=== PATIENT | female | born 1965 | race Two or more races ===

== ENCOUNTER → 2017-09-01 | Outpatient (CLI) | payer MEDICAID, BC ==
[2017-09-01 11:09] LABS: Basophils % (A) 0 %; Eosinophils # (A) 0.1 k/uL (0-0.7); Eosinophils % (A) 2 %; HCT 44.9 % (34.0-46.0); HGB 14.8 gm/dL (11.4-16.0); Lymphocytes # (A) 1.4 k/uL (1.0-4.8); Lymphocytes % (A) 34 %; MCH 31.3 pg (25.0-35.0); MCV 94.8 fL (80.0-100.0); Mean Platelet Volume 6.4; Monocytes # (A) 0.4 k/uL (0-1.0); Monocytes % (A) 8 %; Neutrophils # (A) 2.2 k/uL (1.3-7.7); Neutrophils % (A) 53 %; Platelet Count 264 k/uL (150-450); RBC 4.74 m/uL (3.80-5.40); WBC 4.2 k/uL (3.8-10.6)
[2017-09-01 11:22] LABS: ALT 33 U/L (9-52); AST 25 U/L (14-36); Albumin 4.6 g/dL (3.5-5.0); Alkaline Phosphatase 42 U/L (38-126); Anion Gap 9 mmol/L; Blood Urea Nitrogen 17 mg/dL (7-17); Calcium 9.9 mg/dL (8.4-10.2); Carbon Dioxide 29 mmol/L (22-30); Chloride 104 mmol/L (98-107); Cholesterol 238 mg/dL (<200); Glucose 86 mg/dL (74-99); Potassium 4.4 mmol/L (3.5-5.1); Sodium 142 mmol/L (137-145); Total Bilirubin 0.8 mg/dL (0.2-1.3); Total Protein 7.2 g/dL (6.3-8.2); Triglycerides 63 mg/dL (<150)
[2017-09-01 11:29] LABS: LDL Cholesterol,Calculated 104 mg/dL (0-99)
[2017-09-01 11:55] LABS: HDL Cholesterol 121 mg/dL (40-60)
== END | disposition home or self-care (01) ==
LOC: LABWHC1 10:18
PROVIDERS: ATTEND Internal Medicine
DX: Z00.00 Encounter for general adult medical examination without abnormal findings (principal)
CPT/HCPCS: 36415; 80053; 80061; 84443; 85025

== ENCOUNTER → 2017-09-17 | Outpatient (CLI) | payer MEDICAID, BC ==
--- NOTE | 2017-09-17 13:32 | MM ---
Reason for exam: screening (asymptomatic). History: Patient is postmenopausal. Retro-pectoral silicone gel implants in both breasts, 1999. Physical Findings: A clinical breast exam by your physician is recommended on an annual basis and results should be correlated with mammographic findings. MG 3D Screen Mammo Imp/Cad Bilateral CC, MLO, and ID view(s) were taken. The breast tissue is heterogeneously dense. This may lower the sensitivity of mammography. No significant changes when compared with prior studies. ASSESSMENT: Benign, BI-RAD 2 RECOMMENDATION: Routine screening mammogram of both breasts in 1 year.
== END | disposition home or self-care (01) ==
LOC: RADMAMWWP 07:02
PROVIDERS: ATTEND Internal Medicine
DX: Z12.31 Encounter for screening mammogram for malignant neoplasm of breast (principal)
CPT/HCPCS: 77063; 77067

== ENCOUNTER → 2018-01-11 | Outpatient (CLI) | payer MEDICAID, BC ==
--- NOTE | 2018-01-11 19:32 | US ---
EXAMINATION TYPE: US thyroid st tissue head/neck DATE OF EXAM: 01/11/2018 COMPARISON: NONE CLINICAL HISTORY: I88.9 lymphadenitis. Lymph nodes tooth infections. Bilateral neck scanned, no evidence of lymphadenopathy. Hypoechoic areas seen bilaterally. Largest right side measuring 1.6 x .7 cm. IMPRESSION: There is demonstration of submandibular lymph nodes and measuring 15 x 7 mm on the right side and 9 x 6 mm on the left side.
== END | disposition home or self-care (01) ==
LOC: RADUSWWP 17:02
PROVIDERS: ATTEND Internal Medicine
DX: I88.9 Nonspecific lymphadenitis, unspecified (principal)
CPT/HCPCS: 76536

== ENCOUNTER → 2018-05-09 | Outpatient (CLI) | payer MEDICAID, BC ==
--- NOTE | 2018-05-10 08:17 | XR ---
EXAMINATION TYPE: XR chest 2V DATE OF EXAM: 05/09/2018 COMPARISON: NONE HISTORY: Difficulty breathing TECHNIQUE: Frontal and lateral views of the chest are obtained. FINDINGS: There is no focal air space opacity, pleural effusion, or pneumothorax seen. The cardiac silhouette size is within normal limits. The osseous structures are intact. IMPRESSION: No acute cardiopulmonary process.
--- NOTE | 2018-05-10 08:27 | CT ---
EXAMINATION TYPE: CT abdomen pelvis w con DATE OF EXAM: 05/09/2018 HISTORY: Periumbilical abdominal pain. CT DLP: 658mGycm Automated Exposure Control for Dose Reduction was Utilized. CONTRAST: CT scan of the abdomen and pelvis is performed with IV Contrast, patient injected with 100ml mL of Is ovue 300. COMPARISON: None. FINDINGS: LUNG BASES: There is right-sided intracapsular rupture of the right breast implant. MRI could evaluat e for extracapsular rupture as this is only partially seen. Minimal right basilar subsegmental atelec tasis is noted. LIVER/GB: There is a 2 mm segment 8 hepatic lesion that is too small to accurately characterize an ad ditional 3 mm segment 7 hypoattenuated hepatic lesion as well as 6 mm segment 5 hypoattenuated lesion . Although these are too small to accurately characterize these have markedly decreased attenuation f avoring simple cysts. Minimal geographic hypoattenuation near the gallbladder fossa is seen. This is a typical location for focal fatty infiltration. No cholelithiasis. PANCREAS: No significant abnormality is seen. SPLEEN: No significant abnormality is seen. ADRENALS: No significant abnormality is seen. KIDNEYS: Kidneys enhance and excrete symmetrically without hydronephrosis. BOWEL: What appears to be the appendix is diminutive in caliber and nonenlarged without periappendice al fat stranding. Terminal ileum appears unremarkable without wall thickening or inflammatory fat str anding. Small bowel feces sign is seen throughout scattered nondilated loops of small bowel. No dilat ed large bowel. Moderate amount retained colonic stool is noted. UTERUS/ADNEXA: No gross abnormality seen. LYMPH NODES: No greater than 1cm abdominal or pelvic lymph nodes are appreciated. OSSEOUS STRUCTURES: No significant abnormality is seen. OTHER: Urinary bladder displays circumferential mild urinary bladder wall thickening. IMPRESSION: 1. Multiple loops of nondilated small bowel display small bowel feces sign indicating increased trans it time and mild ileus. No evidence of obstruction. 2. Appendix is not definitively seen however there is no secondary sign of appendicitis with no right lower quadrant fat stranding. If there is persistent right lower quadrant pain repeat scan with solo elizabeth imaging with oral contrast throughout the cecum would be helpful in delineating the appendix. 3. Moderate amount retained colonic stool also indicating increased transit time throughout the large bowel. 4. Probable subcentimeter hepatic cysts. 5. Right breast intracapsular implant rupture. MR fully assess intracapsular fracture and assess for extracapsular rupture as this is only partially visualized.
== END | disposition home or self-care (01) ==
LOC: RADCTMAIN 16:06
PROVIDERS: ATTEND Internal Medicine
DX: R10.33 Periumbilical pain (principal); R06.89 Other abnormalities of breathing
CPT/HCPCS: 71046; 74177; Q9967

== ENCOUNTER → 2018-05-22 | Outpatient (CLI) | payer MEDICAID, BC ==
--- NOTE | 2018-05-22 21:30 | BMR ---
EXAMINATION TYPE: MR breast BILAT wo con DATE OF EXAM: 05/22/2018 COMPARISON: Bilateral 3-D breast mammogram BI-RADS 2 September 17, 2017 HISTORY: Right breast implant rupture suspected. CONTRAST: Multiplanar, multisequence images of the breasts were acquired without IV contrast. TECHNIQUE: A series of fat and water weighted images in the long and short axis views of both breasts are obtained. Three-dimensional and additional postprocessing imaging is created on independent wor kstation and reviewed during official interpretation of this study. FINDINGS: Heterogeneously dense fibroglandular tissue is redemonstrated bilaterally. Breast sizes are fairly symmetric. With regard to the right breast implant there are multiple hypointense internal cu rvilinear lines . Left breast implant appears intact. No extracapsular or free silicone is identified bilaterally. No suspicious axillary adenopathy is seen. Chest wall is intact bilaterally. No suspicious skin thick ening is seen. IMPRESSION: MRI confirmation of suspected intracapsular rupture of right breast implant.
== END ==
LOC: RADMRIMAIN 10:48
PROVIDERS: ATTEND Internal Medicine
DX: T85.43XA Leakage of breast prosthesis and implant, initial encounter (principal)
CPT/HCPCS: 77047

== ENCOUNTER → 2018-10-08 | Outpatient (CLI) | payer MEDICAID, BC | END | disposition home or self-care (01) | LOC: CPPFTMAIN 14:00 | PROVIDERS: ATTEND Family Medicine | DX: J45.40 Moderate persistent asthma, uncomplicated (principal) | CPT/HCPCS: 94060; 94726; 94729 ==

== ENCOUNTER → 2018-11-01 | Outpatient (CLI) | payer MEDICAID, BC ==
--- NOTE | 2018-11-04 12:09 | EST ---
EXERCISE STRESS DATE OF SERVICE: 11/04/2018 AGE: 53 SEX: Female HT: 66" WT: 123 pounds PROTOCOL: Cardiolite Jaycob STAGE: IV DURATION OF EXERCISE: 9 minutes and 55 seconds HEART RATE REST: 74 BLOOD PRESSURE REST: 130/84 MAXIMUM HEART RATE ACHIEVED: 145 MAXIMUM BLOOD PRESSURE: 139/74 85% MPHR: 143 100% MPHR: 168 METS: 11 INDICATIONS: Chest pain. CLINICAL INFORMATION: Baseline EKG shows sinus rhythm, normal axis, normal intervals. Patient exercised on Jaycob protocol for a total of 9 minutes and 55 seconds achieving 11 METs, 86% of predicted maximal heart rate. At peak exercise, she complained of chest tightness. There were no EKG changes. CONCLUSION: 1. Excellent exercise tolerance. 2. Negative stress test by EKG criteria. 3. Cardiolite portion of the stress test will be reported separately. [id number] / IJN: [id number] /
--- NOTE | 2018-11-04 16:39 | NM ---
EXAMINATION TYPE: NM stress cardiolite complete DATE OF EXAM: 11/04/2018 COMPARISON: NONE HISTORY: R07.9 chest pain TECHNIQUE: After the intravenous administration of 9.82 mCi Tc 99m Sestamibi - Rest images obtained 45 minutes post injection. The patient exercised using a YUMIKO protocol and 1 minute prior to peak exercise was injected with 25 mCi Tc 99m Sestamibi - Stress images obtained 10 minutes post injection . FINDINGS: Patient had chest tightness at the level of 9 during the examination and the procedure was terminated . Greater than 80% of predicted maximum heart rate was achieved. Gated analysis shows normal wall motion with an estimated left ventricular ejection fraction of 75%. Stress-induced ischemic changes are not identified on the SPECT imaging. There is a suggestion of tanner e polar map defects on stress and rest which are not matched. IMPRESSION: 1. Correlate with the patient symptoms patient achieved 86% of predicted maximum heart rate and had c hest tightness rated at 8 9 during this exam. 2. Stress-induced ischemic changes on SPECT imaging are not readily apparent. 3. Normal ejection fraction is 75%.
== END | disposition home or self-care (01) ==
LOC: RADNMMAIN 08:19
PROVIDERS: ATTEND Family Medicine
DX: Z53.9 Procedure and treatment not carried out, unspecified reason (principal)

== ENCOUNTER → 2018-11-05 | Outpatient (CLI) | payer BC, MEDICAID ==
--- NOTE | 2018-11-05 16:30 | ECHOF ---
Referral Reason:Chest Pain R07.9 SOB R06.02 MEASUREMENTS -------- HEIGHT: 167.6 cm WEIGHT: 57.2 kg BP: RVIDd: 2.3 cm (< 3.3) IVSd: 1.1 cm (0.6 - 1.1) LVIDd: 3.7 cm (3.9 - 5.3) LVPWd: 1.0 cm (0.6 - 1.1) IVSs: 1.3 cm LVIDs: 3.0 cm LVPWs: 1.3 cm LAESV Index (A-L): 12.67 ml/m Ao Diam: 2.2 cm (2.0 - 3.7) AV Cusp: 1.4 cm (1.5 - 2.6) LA Diam: 2.3 cm (2.7 - 3.8) EPSS: 0.2 cm MV E Seamus: 1.01 m/s MV DecT: 165 ms MV A Seamus: 0.69 m/s MV E/A Ratio: 1.46 RAP: 5.00 mmHg RVSP: 21.40 mmHg MV EF SLOPE: 121.30 mm/s (70 - 150) MV EXCURSION: 1.45 cm (> 18.000) FINDINGS -------- Sinus rhythm. TDS due to breast implants The left ventricular size is normal. Left ventricular wall thickness is normal. Overall left vent ricular systolic function is normal with, an EF between 55 - 60 %. The diastolic filling pattern is normal for the age of the patient. The right ventricle is normal in size. Left atrium is normal size by volume. The right atrium was not well visualized. Interatrial and interventricular septum intact. The aortic valve was not well visualized. There is no evidence of aortic regurgitation. There is no evidence of aortic stenosis. The aortic root size is normal. The inferior vena cava is mildly dilated. There is no pericardial effusion. CONCLUSIONS -------- 1. Sinus rhythm. 2. TDS due to breast implants 3. The left ventricular size is normal. 4. Left ventricular wall thickness is normal. 5. Overall left ventricular systolic function is normal with, an EF between 55 - 60 %. 6. The diastolic filling pattern is normal for the age of the patient. 7. The right ventricle is normal in size. 8. Left atrium is normal size by volume. 9. The right atrium was not well visualized. 10. Interatrial and interventricular septum intact. 11. The aortic valve was not well visualized. 12. There is no evidence of aortic regurgitation. 13. There is no evidence of aortic stenosis. 14. The aortic root size is normal. 15. The inferior vena cava is mildly dilated. 16. There is no pericardial effusion. PROPERTIES SUPERVISOR: Geetha Allen RDCS
== END ==
LOC: RADECHMAIN 11:13
PROVIDERS: ATTEND Family Medicine
DX: I51.7 Cardiomegaly (principal)
CPT/HCPCS: 93306

== ENCOUNTER → 2018-12-16 | Outpatient (CLI) | payer MEDICAID, BC | END | disposition home or self-care (01) | LOC: LABWHC1 17:17 | PROVIDERS: ATTEND Internal Medicine Critical Care Medicine | DX: R05 Cough (principal); R06.00 Dyspnea, unspecified | CPT/HCPCS: 36415; 82785; 85008; 86001; 86606; 86609 ==

== ENCOUNTER → 2018-12-18 | Outpatient (CLI) | payer MEDICAID, BC ==
--- NOTE | 2018-12-19 05:20 | CT ---
EXAMINATION TYPE: CT chest w con DATE OF EXAM: 12/18/2018 COMPARISON: Radiograph 05/09/[address] abdomen and pelvis 05/09/2018 HISTORY: 53-year-old female SOB, chest pressure. TECHNIQUE: Contiguous axial scanning of the chest after the administration of 100 mL of Isovue 300. Coronal/sagittal reconstructions performed. CT DLP: 126.5mGycm. Automatic exposure control utilized for a dose reduction. FINDINGS: The right breast implant is showing multiple folds within compatible with intracapsular rupture. Heart normal size without pericardial effusion. Aorta normal caliber with conventional arch vessel branching anatomy. No thoracic lymphadenopathy by CT size criteria Evaluation of the lungs show suggestion of minimal emphysematous change in the posterior left lower l arline, axial image 36. Minimal dependent atelectasis posteriorly on the right. No consolidation or pleural effusion. Visualized upper abdomen shows a 7 mm hypodensity peripheral right lower lobe too small for accurate CT characterization, but stable from 05/09/2018. Bones: No osseous destructive process. IMPRESSION: 1. Very minimal emphysematous change. No acute pulmonary process. 2. Known intracapsular rupture of the right breast implant.
== END | disposition home or self-care (01) ==
LOC: RADCTMAIN 16:36
PROVIDERS: ATTEND Internal Medicine Critical Care Medicine
DX: J43.9 Emphysema, unspecified (principal); T85.49XA Other mechanical complication of breast prosthesis and implant, initial encounter
CPT/HCPCS: 71260; Q9967

== ENCOUNTER → 2018-12-20 | Outpatient (CLI) | payer MEDICAID, BC | END | disposition home or self-care (01) | LOC: LABWHC1 10:22 | PROVIDERS: ATTEND Internal Medicine Critical Care Medicine | DX: R10.13 Epigastric pain (principal); R05 Cough | CPT/HCPCS: 36415; 86606; 86612; 86635; 86698 ==

== ENCOUNTER → 2019-02-04 | Outpatient (CLI) | payer MEDICAID, BC ==
--- NOTE | 2019-02-04 21:16 | US ---
EXAMINATION TYPE: US thyroid st tissue head/neck DATE OF EXAM: 02/04/2019 COMPARISON: Recent neck ultrasound January 11, 2018. CLINICAL HISTORY: R59.0 Cervical lymphadenopathy. Lymphadenopathy. Bilateral neck scanned. Hypoechoic areas with hyperechoic centers and vascular elsa seen bilaterally. Largest on right measures: 2.0 x 2.0 x 0.9 cm. Largest on left measures: 2.0 x 0.9 x 0.9 cm. Redemonstration of prominent bilateral neck lymph nodes slightly larger versus 2018 study with persis tent eccentric cortical thickening. They remain subcentimeter in short axis. IMPRESSION: As above. Differential includes inflammatory infectious and neoplastic etiologies such as lymphoma. Need for further workup should be based on strict clinical correlation.
== END | disposition home or self-care (01) ==
LOC: RADUSMAIN 17:59
PROVIDERS: ATTEND Family Medicine
DX: R59.0 Localized enlarged lymph nodes (principal)
CPT/HCPCS: 76536

== ENCOUNTER → 2019-03-03 | Outpatient (CLI) | payer MEDICAID, BC | END | disposition home or self-care (01) | LOC: LABWHC1 17:21 | PROVIDERS: ATTEND Otolaryngology | DX: J30.89 Other allergic rhinitis (principal) | CPT/HCPCS: 36415 ==

== ENCOUNTER → 2019-03-14 | Outpatient (CLI) | payer MEDICAID, BC ==
--- NOTE | 2019-03-14 13:59 | US ---
EXAMINATION TYPE: US transvaginal DATE OF EXAM: 03/14/2019 COMPARISON: CT abdomen and pelvis May 09, 2018 CLINICAL HISTORY: N95.0 Post menopausal bleeding. TECHNIQUE: Transvaginal (TV). Patient unable to fill her bladder. Date of LMP: Patient had her last menses in her early 40's. EXAM MEASUREMENTS: Uterus: 6.0 x 3.5 x 2.9 cm Endometrial Stripe: 0.2 cm Right Ovary: 1.5 x 0.7 x 0.8 cm Left Ovary: not visualized 1. Uterus: Retroverted 2. Endometrium: 0.2cm 3. Right Ovary: 1.5 x 0.8 x 0.7 4. Left Ovary: not visualized 5. Bilateral Adnexa: prominent vessels seen 6. Posterior cul-de-sac: wnl Persistent retroverted uterus with subserosal heterogeneous hypoechoic poorly defined fibroid measuri ng 1.7 cm. No free fluid. IMPRESSION: Small 1.7 cm posterior subserosal fibroid correlating with CT axial image 62.
== END | disposition home or self-care (01) ==
LOC: RADUSWWP 13:09
PROVIDERS: ATTEND Obstetrics & Gynecology
DX: D25.2 Subserosal leiomyoma of uterus (principal); N95.0 Postmenopausal bleeding
CPT/HCPCS: 76830

== ENCOUNTER → 2019-04-08 | Outpatient (CLI) | payer MEDICAID, BC ==
--- NOTE | 2019-04-08 14:49 | MM ---
Reason for exam: screening (asymptomatic). Last mammogram was performed 1 year and 7 months ago. History: Patient is postmenopausal. Retro-pectoral silicone gel implants in both breasts, 2000. Physical Findings: A clinical breast exam by your physician is recommended on an annual basis and results should be correlated with mammographic findings. MG 3D Screen Mammo Imp/Cad Bilateral CC, MLO, and ID view(s) were taken. Prior study comparison: September 17, 2017, bilateral MG 3d screen mammo imp/cad. The breast tissue is heterogeneously dense. This may lower the sensitivity of mammography. There are benign appearing round dystrophic calcifications bilaterally. There is no discrete abnormality. Bilateral subpectoral implants redemonstrated. ASSESSMENT: Benign, BI-RAD 2 RECOMMENDATION: Routine screening mammogram of both breasts in 1 year.
== END ==
LOC: RADMAMWWP 03-04 11:04
PROVIDERS: ATTEND Family Medicine
DX: Z12.31 Encounter for screening mammogram for malignant neoplasm of breast (principal)
CPT/HCPCS: 77063; 77067

== ENCOUNTER 2019-05-22 10:18 | Day surgery (SDC) | payer MEDICAID, BC ==
[2019-05-21 14:16] VITALS: BMI 18.8
[~2019-05-22 10:18] MED LIST: LACTATED RINGERS 1,000 ML IV SCH; LIDOCAINE 1% (10MG/ML) FOR IV START INTRADERMA PRN
[2019-05-22 11:01] VITALS: RESP 16; TEMP 97.8
[2019-05-22] MEDS ORDERED: LIDOCAINE 1% INJ 10MG/ML (20 ML MDV) ONE (12:54)
[2019-05-22] MEDS ORDERED: PROPOFOL 10 MG/ML 20 ML VIAL IV ONE (12:54)
--- NOTE | 2019-05-22 13:15 | P.PCN ---
Date of Procedure: 05/22/19 Description of Procedure: BRIEF HISTORY: Patient is a 54-year-old female currently on treatment with omeprazole therapy presenting for outpatient EGD for evaluation of GERD. The patient reports a long-standing history of GERD. She reports previous endoscopies at which time she was told she needed to have endoscopy for surveillance every 2 years. Last EGD in 2014 was significant for mild gastritis with negative biopsies. PROCEDURE PERFORMED: Esophagogastroduodenoscopy with biopsies. PREOPERATIVE DIAGNOSIS: GERD. ESTIMATED BLOOD LOSS: Minimal. IV sedation per anesthesia. PROCEDURE: After informed consent was obtained, the patient was brought into the endoscopy unit. IV sedation was administered by Anesthesia under continuous monitoring. Initially the Olympus GIF-190 video endoscope was inserted into the mouth. Esophagus intubated without any difficulty. It was gradually advanced into the stomach and duodenum and carefully examined. The bulb and the second part of the duodenum appeared normal, with biopsies taken. The scope at this time was withdrawn to the stomach, adequately insufflated with air, and upon careful examination, mucosa of the antrum, body, cardia and the fundus appeared normal, except for some mild punctate erythema in the antrum and body suggestive of mild gastritis with biopsies taken of the antrum body to rule out Helicobacter pylori. The scope was then withdrawn into the esophagus. The GE junction was located at 37 cm from the incisors, it appeared normal with biopsies taken with the patient's history suggestive of Beyer's esophagus. The esophagus appeared normal. There were no erosions or ulcerations seen and the patient tolerated the procedure well. IMPRESSION: 1. Mild Gastritis antrum body, biopsied. 2. Biopsies of the duodenum and GE junction. RECOMMENDATIONS: The findings of this examination were discussed with the patient. Okay to resume diet. Okay to resume medications. Await pathology from biopsies. Extensive discussion with the patient and given her history if biopsies are consistent with Beyer's as her history suggests she should continue to have EGD every 2-3 years for surveillance.
[2019-05-22 14:06] VITALS: BP 120/85; PULSE 77
== END 2019-05-22 13:52 | disposition home or self-care (01) ==
LOC: ORWHC2ENDO 10:18
PROVIDERS: ATTEND Internal Medicine
DX: K29.50 Unspecified chronic gastritis without bleeding (principal); K22.8 Other specified diseases of esophagus; K21.9 Gastro-esophageal reflux disease without esophagitis; J45.909 Unspecified asthma, uncomplicated; Z79.899 Other long term (current) drug therapy; Z79.1 Long term (current) use of non-steroidal anti-inflammatories (NSAID); Z79.51 Long term (current) use of inhaled steroids; Z98.890 Other specified postprocedural states; Z98.82 Breast implant status; Z87.19 Personal history of other diseases of the digestive system
CPT/HCPCS: 88305; 43239; J2001; J2704

== ENCOUNTER → 2019-08-22 | Outpatient (CLI) | payer MEDICAID | END | disposition home or self-care (01) | LOC: LABWHC1 13:58 | PROVIDERS: ATTEND Internal Medicine Critical Care Medicine | DX: U07.1 COVID-19 (principal) | CPT/HCPCS: 36415; 86769 ==

== ENCOUNTER → 2020-02-20 | Outpatient (CLI) | payer BC, MEDICAID | END | disposition home or self-care (01) | LOC: EDSTATUS 15:30 → LABWHC1 15:35 | PROVIDERS: ATTEND Internal Medicine Critical Care Medicine | DX: J45.40 Moderate persistent asthma, uncomplicated (principal); K44.9 Diaphragmatic hernia without obstruction or gangrene; M54.9 Dorsalgia, unspecified; T78.49XA Other allergy, initial encounter | CPT/HCPCS: 36415; 82785; 85008 ==

== ENCOUNTER → 2020-06-22 | Outpatient (CLI) | payer MEDICAID | END | disposition home or self-care (01) | LOC: LABWHC1 17:01 | PROVIDERS: ATTEND Otolaryngology | DX: R09.81 Nasal congestion (principal) | CPT/HCPCS: U0003; C9803 ==

== ENCOUNTER → 2020-06-25 | Outpatient (CLI) | payer MEDICAID ==
--- NOTE | 2020-06-29 10:38 | MM ---
Reason for exam: screening (asymptomatic). Last mammogram was performed 1 year and 3 months ago. History: Patient is postmenopausal. Retro-pectoral silicone gel implants in both breasts, 2000. Physical Findings: A clinical breast exam by your physician is recommended on an annual basis and results should be correlated with mammographic findings. MG 3D Screen Mammo Imp/Cad Bilateral CC, MLO, and ID view(s) were taken. Prior study comparison: April 08, 2019, bilateral MG 3d screen mammo imp/cad. September 17, 2017, bilateral MG 3d screen mammo imp/cad. The breast tissue is heterogeneously dense. This may lower the sensitivity of mammography. Retropectoral silicone implants. A couple benign oil cysts. No significant changes when compared with prior studies. ASSESSMENT: Benign, BI-RAD 2 RECOMMENDATION: Routine screening mammogram of both breasts in 1 year.
== END | disposition home or self-care (01) ==
LOC: RADMAMWWP 15:06
PROVIDERS: ATTEND Obstetrics & Gynecology
DX: Z12.31 Encounter for screening mammogram for malignant neoplasm of breast (principal); Z78.0 Asymptomatic menopausal state
CPT/HCPCS: 77063; 77067

== ENCOUNTER → 2021-04-13 | Outpatient (CLI) | payer OTHER, BC | END | disposition home or self-care (01) | LOC: LABWHC1 16:39 | PROVIDERS: ATTEND Family Medicine | DX: Z09 Encounter for follow-up examination after completed treatment for conditions other than malignant neoplasm (principal); Z86.16 Personal history of COVID-19 | CPT/HCPCS: 36415; 86769 ==

== ENCOUNTER → 2021-09-29 | Outpatient (CLI) | payer BC ==
--- NOTE | 2021-09-30 08:27 | MM ---
Reason for Exam: Screening (asymptomatic). Last mammogram was performed 1 year(s) and 3 month(s) ago. Patient History: Menarche at age 13. First Full-Term at age 23. Postmenopausal. Patient has history of breast feeding. 2000, Bilateral Implants. Risk Values: Sarah 5 year model risk: 1.1%. NCI Lifetime model risk: 7.4%. Prior Study Comparison: 09/17/2017 Bilateral Screening Mammogram, [facility]. 05/22/2018 Bilateral Diagnostic Breast MRI, [facility]. 04/08/2019 Bilateral Screening Mammogram, [facility]. 06/25/2020 Bilateral Screening Mammogram, [facility]. Tissue Density: The breast tissue is heterogeneously dense. This may lower the sensitivity of mammography. Findings: Analyzed By CAD. Bilateral subpectoral breast implants are redemonstrated. Some benign-appearing round and dystrophic calcifications bilaterally are again seen. There is no suspicious group of microcalcifications or new suspicious mass in either breast. Overall Assessment: Benign, BI-RAD 2 Management: Screening Mammogram of both breasts in 1 year. A clinical breast exam by your physician is recommended on an annual basis and results should be correlated with mammographic findings. Electronically signed and approved by: Reuben Astorga M.D.
== END | disposition home or self-care (01) ==
LOC: RADMAMWWP 09:18
PROVIDERS: ATTEND Obstetrics & Gynecology
DX: Z12.31 Encounter for screening mammogram for malignant neoplasm of breast (principal)
CPT/HCPCS: 77063; 77067

== ENCOUNTER → 2021-12-21 | Outpatient (CLI) | payer BC ==
--- NOTE | 2021-12-21 09:57 | BD ---
EXAMINATION TYPE: Axial Bone Density DATE OF EXAM: 12/21/2021 COMPARISON: NONE CLINICAL HISTORY: 56 year old Female. ICD-10 CODE: Z 78.0 POST CHELY Height: 65 Weight: 120.4 FRAX RISK QUESTIONS: Alcohol (3 or more units per day): no Family History (Parent hip fracture): no Glucocorticoids (More than 3mos): no (Ex: prednisone, prednisolone, methylprednisolone, dexamethasone, and hydrocortisone). History of Fracture in Adulthood: no Secondary Osteoporosis: 1. Type 1 Diabetes: no 2. Hyperthyroidism: no 3. Menopause before 45: yes 4. Malnutrition: no 5. Chronic liver disease: no Rheumatoid Arthritis: no Current Tobacco Use: no RISK FACTORS HISTORY OF: Surgery to Spine/Hip(right/left)/Wrist (right/left): no Family History of Osteoporosis: no Active: yes Diet low in dairy products/other sources of calcium: yes Postmenopausal woman: yes Take estrogen and/or progesterone medications: yes How lon months Lost more than 2 inches in height since high school: yes MEDICATIONS: Additional History: EXAM MEASUREMENTS: Bone mineral densitometry was performed using the [employer] System. Bone mineral density as measured about the Lumbar spine is: ----- L1-L4(G/cm2): 1.041 T Score Values are as follows: ----- L1: -2.4 ----- L2: -1.4 ----- L3: -0.4 ----- L4: -0.6 ----- L1-L4: -1.2 Bone mineral density : baseline Bone mineral density about the R hip (g/cm2): 0.979 Bone mineral density about the L hip (g/cm2): 0.940 T Score values are as follows: -----R Neck: -0.4 -----L Neck: -0.7 -----R Total: 0.0 -----L Total: -0.1 Bone mineral density : baseline FRAX%s: The graph provided illustrates a 5.0% chance for a major osteoporotic fx and a 0.2% chance fo r the hips probability for fx in 10 years time. IMPRESSION: Normal (Values between +1 and -1 indicate normal bone mass). Consider repeating this study in 5 year s or sooner if there is some new clinical indication. NOTE: T-SCORE=SD OF THE YOUNG ADULT MEAN.
== END | disposition home or self-care (01) ==
LOC: RADBDWWP 08:05
PROVIDERS: ATTEND Obstetrics & Gynecology
DX: Z78.0 Asymptomatic menopausal state (principal)
CPT/HCPCS: 77080

== ENCOUNTER 2022-01-10 08:48 | Day surgery (SDC) | payer BC ==
[2022-01-09 11:32] VITALS: BMI 19.3
[2022-01-10 09:39] VITALS: TEMP 97.9
[2022-01-10] MEDS ORDERED: LIDOCAINE 2% INJ 20 MG/ML (2 ML VIAL) ONE (10:32)
[2022-01-10] MEDS ORDERED: PROPOFOL 10 MG/ML 20 ML VIAL IV ONE (10:32)
--- NOTE | 2022-01-10 10:42 | P.PCN ---
Date of Procedure: 01/10/22 Procedure(s) Performed: BRIEF HISTORY: Patient is a 57-year-old, pleasant, female scheduled for an upper endoscopy as a part of evaluation of long-standing history of GERD for which she takes omeprazole 20 mg as needed.. She denies any abdominal pain, dysphagia or odynophagia. PROCEDURE PERFORMED: Esophagogastroduodenoscopy. PREOPERATIVE DIAGNOSIS: Long-standing history of GERD.. IV sedation per anesthesia. PROCEDURE: After informed consent was obtained, the patient was brought into the endoscopy unit. IV sedation was administered by Anesthesia under continuous monitoring. Initially the Olympus GIF-140 video endoscope was inserted into the mouth. Esophagus intubated without any difficulty. It was gradually advanced into the stomach and duodenum and carefully examined. The bulb and the second part of the duodenum appeared normal. The scope at this time was withdrawn to the stomach, adequately insufflated with air, and upon careful examination, mucosa of the antrum, body, cardia and the fundus appeared normal. The scope was then withdrawn into the esophagus. The GE junction was located at 39 cm from the incisors. A very small sliding type hiatal hernia noted. The esophagus appeared normal. There were no erosions or ulcerations seen and the patient tolerated the procedure well. IMPRESSION: 1. Very small sliding-type well hernia. 2. No evidence of esophagitis or Beyer's esophagus. RECOMMENDATIONS: The findings of this examination were discussed with the patient as well as a family. She was advised to continue with omeprazole as needed and follow antireflux measures..
[2022-01-10 11:00] VITALS: BP 125/84; PULSE 66; RESP 16
== END 2022-01-10 11:21 | disposition home or self-care (01) ==
LOC: ORWHC2ENDO 08:48
PROVIDERS: ATTEND Internal Medicine Gastroenterology
DX: K44.9 Diaphragmatic hernia without obstruction or gangrene (principal)
CPT/HCPCS: 43235; J2704; J2001

== ENCOUNTER 2022-08-23 16:01 | Emergency (ER) | payer BC ==
[2022-08-23 16:37] VITALS: TEMP 98.7
--- NOTE | 2022-08-23 17:15 | XR ---
EXAMINATION TYPE: XR chest 2V DATE OF EXAM: 08/23/2022 5:12 PM COMPARISON: Chest radiographs from 10/06/2018 TECHNIQUE: XR chest 2V Frontal and lateral views of the chest. CLINICAL INDICATION:Female, 57 years old with history of difficulty breathing; FINDINGS: Lungs/Pleura: There is no evidence of pleural effusion, focal consolidation, or pneumothorax. Pulmonary vascularity: Unremarkable. Heart/mediastinum: Cardiomediastinal silhouette is unremarkable. Musculoskeletal: No acute osseous pathology. IMPRESSION: No acute cardiopulmonary disease/process.
[2022-08-23 17:39] LABS: Basophils % (A) 0 %; Eosinophils # (A) 0.1 k/uL (0-0.7); Eosinophils % (A) 1 %; HCT 41.5 % (34.0-46.0); HGB 13.9 gm/dL (11.4-16.0); Lymphocytes # (A) 1.5 k/uL (1.0-4.8); Lymphocytes % (A) 28 %; MCH 31.8 pg (25.0-35.0); MCHC 33.6 g/dL (31.0-37.0); MCV 94.6 fL (80.0-100.0); Mean Platelet Volume 6.9; Monocytes # (A) 0.3 k/uL (0-1.0); Monocytes % (A) 6 %; Neutrophils # (A) 3.4 k/uL (1.3-7.7); Neutrophils % (A) 61 %; Platelet Count 296 k/uL (150-450); RBC 4.39 m/uL (3.80-5.40); RDW 12.8 % (11.5-15.5); WBC 5.5 k/uL (3.8-10.6)
[2022-08-23 17:50] LABS: INR 0.9 (<1.2); Partial Thromboplastin Time 23.8 sec (22.0-30.0); Prothrombin Time 10.1 sec (9.0-12.0)
[2022-08-23 17:58] LABS: ALT 23 U/L (4-34); AST 29 U/L (14-36); African American GFR (CKD) >90 (>60 ml/min/1.73 sqM); Albumin 4.5 g/dL (3.5-5.0); Alkaline Phosphatase 57 U/L (38-126); Anion Gap 7 mmol/L; Blood Urea Nitrogen 16 mg/dL (7-17); Calcium 10.2 mg/dL (8.4-10.2); Carbon Dioxide 27 mmol/L (22-30); Chloride 102 mmol/L (98-107); Glucose 95 mg/dL (74-99); Non-African American GFR(CKD) >90 (>60 ml/min/1.73 sqM); Potassium 4.3 mmol/L (3.5-5.1); Sodium 136 mmol/L (137-145); Total Bilirubin 0.8 mg/dL (0.2-1.3); Total Protein 7.4 g/dL (6.3-8.2)
--- NOTE | 2022-08-23 19:49 | ED ---
SOB HPI - General Chief Complaint: Shortness of Breath Stated Complaint: Chest Pain/SOB Time Seen by Provider: 08/23/22 19:29 Source: patient, RN notes reviewed, old records reviewed Mode of arrival: ambulatory Limitations: no limitations - History of Present Illness Initial Comments: This is a well-appearing 57-year-old female who presents to the emergency room with complaints of walking outside today during with poor air quality reports around 11:30 when she developed some shortness of breath. She states that she did use her budesonide with minimal relief. She does have a dry cough. Denies any fevers. States that she felt like her chest was tight and she could not get her air in, similar to when she's had asthma attacks in the past. She states she has leftover hydroxychloroquine which she started also today and did call her auto vinyl top installer who recommended she come to the emergency room for evaluation. MD Complaint: shortness of breath -: hour(s) (8) Severity scale (1-10): 0 Consistency: now resolved Improves With: bronchodilators Known History Of: asthma Context: other (environmental) Associated Symptoms: chest pain, pain with inspiration, cough (dry) Treatments Prior to Arrival: bronchodilator - Related Data Home Medications Medication Instructions Recorded Confirmed Fluticasone Nasal Volcano [Flonase 1 spray EA NOSTRIL DAILY PRN 05/21/19 01/09/22 Nasal Volcano] Albuterol Sulfate [Proair 1 puff INHALATION Q6H PRN 01/09/22 01/09/22 Respiclick] Allergy Injections 1 dose SQ WEEKLY 01/09/22 Cholecalciferol [Vitamin D3 (125 125 mcg PO DAILY 01/09/22 01/09/22 Mcg = 5000 Iu)] Fluticasone Propion/Salmeterol 1 puff INHALATION DIRECTED PRN 01/09/22 1 [Advair 500-50 Diskus] Tramadol 10 mg PO DIRECTED PRN 01/09/22 Zinc Gluconate [Zinc] 50 mg PO DAILY 01/09/22 01/09/22 Allergies Allergy/AdvReac Type Severity Reaction Status Date / Time environmental allergies Allergy Unknown receives Uncoded 08/23/22 16:38 weekly injections Review of Systems ROS Statement: Those systems with pertinent positive or pertinent negative responses have been documented in the HPI. ROS Other: All systems not noted in ROS Statement are negative. Past Medical History Additional Past Medical History / Comment(s): HIATAL HERNIA. extrinsic asthma History of Any Multi-Drug Resistant Organisms: None Reported Past Surgical History: Orthopedic Surgery Additional Past Surgical History / Comment(s): LEFT KNEE ARTHROSCOPY, RT BUNIONECTOMY, EGD (2010) Past Anesthesia/Blood Transfusion Reactions: No Reported Reaction Past Psychological History: No Psychological Hx Reported Smoking Status: Second hand smoke exposure Past Alcohol Use History: Occasional Past Drug Use History: None Reported - Past Family History Mother Family Medical History: No Reported History General Exam Limitations: no limitations General appearance: alert, in no apparent distress Head exam: Present: atraumatic Eye exam: Present: normal appearance, PERRL, EOMI. Absent: scleral icterus, conjunctival injection, periorbital swelling ENT exam: Present: normal oropharynx, mucous membranes moist, other (right tonsil stone) Neck exam: Present: full ROM. Absent: tenderness, meningismus, lymphadenopathy Respiratory exam: Present: normal lung sounds bilaterally. Absent: respiratory distress, accessory muscle use Cardiovascular Exam: Present: regular rate GI/Abdominal exam: Present: soft Extremities exam: Present: normal capillary refill. Absent: pedal edema Neurological exam: Present: alert, oriented X3 Psychiatric exam: Present: normal affect, normal mood Skin exam: Present: warm, dry, normal color. Absent: cyanosis, diaphoretic, petechiae, pallor Course Vital Signs 08/23/22 08/23/22 16:34 21:01 Temperature 98.7 F Pulse Rate 90 79 Respiratory 20 18 Rate Blood Pressure 151/86 118/80 O2 Sat by Pulse 100 100 Oximetry Medical Decision Making - Medical Decision Making Was pt. sent in by a medical professional or institution (, PA, BOX TRUCK DRIVER, urgent care, hospital, or [place] health care facility...) When possible be specific @ -No Did you speak to anyone other than the patient for history (EMS, parent, family, police, friend...)? What history was obtained from this source @ -No Did you review nursing and triage notes (agree or disagree)? Why? @ -I reviewed and agree with nursing and triage notes Were old charts reviewed (outside hosp., previous admission, EMS record, old EKG, old radiological studies, urgent care reports/EKG's, [place] health care facility records)? Report findings @ -No old charts were reviewed Differential Diagnosis (chest pain, altered mental status, abdominal pain women, abdominal pain men, vaginal bleeding, weakness, fever, dyspnea, syncope, headache, dizziness, GI bleed, back pain, seizure, CVA, palpatations, mental health, musculoskeletal)? @ -Differential Dyspnea: Coronary syndrome, arrhythmia, tamponade, asthma, COPD, pulmonary embolism, pneumonia, pneumothorax, pulmonary effusion, anaphylaxis, diabetic ketoacidosis, flailed chest, pulmonary contusion, diaphragmatic rupture, anemia, neuromuscular, this is not meant to be an all-inclusive list. EKG interpreted by me (3pts min.). @ -yes, EKG interpreted by me shows sinus rhythm with a ventricular rate of 75, AL interval 0.138, QRS 0.76, QTC 0.399, normal axis X-rays interpreted by me (1pt min.). @ -yes Chest x-ray interpreted by me shows no evidence of focal consolidation. Trachea is midline. Cardiac silhouette within normal size. CT interpreted by me (1pt min.). @ -None done U/S interpreted by me (1pt. min.). @ -None done What testing was considered but not performed or refused? (CT, X-rays, U/S, labs)? Why? @ -None What meds were considered but not given or refused? Why? @ -None Did you discuss the management of the patient with other professionals (professionals i.e. , PA, BOX TRUCK DRIVER, lab, RT, psych nurse, health care social worker, hot box operator, teacher, plain clothes police officer, case management associate)? Give summary @ -No Was smoking cessation discussed for >3mins.? @ -No Was critical care preformed (if so, how long)? @ -No Were there social determinants of health that impacted care today? How? (Homelessness, low income, unemployed, alcoholism, drug addiction, transportation, low edu. Level, literacy, decrease access to med. care, skilled nursing, rehab)? @ -No Was there de-escalation of care discussed even if they declined (Discuss DNR or withdrawal of care, Hospice)? DNR status @ -No What co-morbidities impacted this encounter? (DM, HTN, Smoking, COPD, CAD, Cancer, CVA, ARF, Chemo, Hep., AIDS, mental health diagnosis, sleep apnea, morbid obesity)? @ -Asthma Was patient admitted / discharged? Hospital course, mention meds given and route, prescriptions, significant lab abnormalities, going to OR and other pertinent info. @ -Discharged 57-year-old female presents with complaints of walking outside today during with poor air quality reports around 11:30 when she developed some shortness of breath. She states that she did use her budesonide with minimal relief. She does have a dry cough. Denies any fevers. States that she felt like her chest was tight and she could not get her air in, similar to when she's had asthma attacks in the past. CBC and electrolytes are unremarkable. Troponin negative at 0.012 Radiologist interpretation no acute cardiopulmonary disease or process. Patient does take budesonide, Advair and has a albuterol inhaler however states she did not use it today. At this time lung sounds are clear to auscultation. Patient in no respiratory distress. Vital signs are stable. Patient requested albuterol treatment which was provided with improvement in her symptoms. She was discharged home and directed to continue her budesonide and Advair, use her albuterol as needed. Strict return parameters were discussed. Patient is agreeable to this plan of care. Case discussed with Dr. Allen Undiagnosed new problem with uncertain prognosis? @ -No Drug Therapy requiring intensive monitoring for toxicity (Heparin, Nitro, Insulin, Cardizem)? @ -No Were any procedures done? @ -No Diagnosis/symptom? @ -Asthma exacerbation, dyspnea Acute, or Chronic, or Acute on Chronic? @ -Acute on chronic Uncomplicated (without systemic symptoms) or Complicated (systemic symptoms)? @ -Uncomplicated Side effects of treatment? @ -No Exacerbation, Progression, or Severe Exacerbation? @ -No Poses a threat to life or bodily function? How? (Chest pain, USA, CT, pneumonia, PE, COPD, DKA, ARF, appy, cholecystitis, CVA, Diverticulitis, Homicidal, Suicidal, threat to staff... and all critical care pts) @ -No - Lab Data Result diagrams: 08/23/22 17:00 08/23/22 17:00 Lab Results 08/23/22 08/23/22 08/23/22 Range/Units 17:00 17:00 17:00 WBC 5.5 (3.8-10.6) k/uL RBC 4.39 (3.80-5.40) m/uL Hgb 13.9 (11.4-16.0) gm/dL Hct 41.5 (34.0-46.0) % MCV 94.6 (80.0-100.0) fL MCH 31.8 (25.0-35.0) pg MCHC 33.6 (31.0-37.0) g/dL RDW 12.8 (11.5-15.5) % Plt Count 296 (150-450) k/uL MPV 6.9 Neutrophils % 61 % Lymphocytes % 28 % Monocytes % 6 % Eosinophils % 1 % Basophils % 0 % Neutrophils # 3.4 (1.3-7.7) k/uL Lymphocytes # 1.5 (1.0-4.8) k/uL Monocytes # 0.3 (0-1.0) k/uL Eosinophils # 0.1 (0-0.7) k/uL Basophils # 0.0 (0-0.2) k/uL PT 10.1 (9.0-12.0) sec INR 0.9 (<1.2) APTT 23.8 (22.0-30.0) sec Sodium 136 L (137-145) mmol/L Potassium 4.3 (3.5-5.1) mmol/L Chloride 102 (98-107) mmol/L Carbon Dioxide 27 (22-30) mmol/L Anion Gap 7 mmol/L BUN 16 (7-17) mg/dL Creatinine 0.63 (0.52-1.04) mg/dL Est GFR (CKD-EPI)AfAm >90 (>60 ml/min/1.73 sqM) Est GFR (CKD-EPI)NonAf >90 (>60 ml/min/1.73 sqM) Glucose 95 (74-99) mg/dL Calcium 10.2 (8.4-10.2) mg/dL Total Bilirubin 0.8 (0.2-1.3) mg/dL AST 29 (14-36) U/L ALT 23 (4-34) U/L Alkaline Phosphatase 57 (38-126) U/L Troponin I (0.000-0.034) ng/mL Total Protein 7.4 (6.3-8.2) g/dL Albumin 4.5 (3.5-5.0) g/dL 08/23/22 Range/Units 17:00 WBC (3.8-10.6) k/uL RBC (3.80-5.40) m/uL Hgb (11.4-16.0) gm/dL Hct (34.0-46.0) % MCV (80.0-100.0) fL MCH (25.0-35.0) pg MCHC (31.0-37.0) g/dL RDW (11.5-15.5) % Plt Count (150-450) k/uL MPV Neutrophils % % Lymphocytes % % Monocytes % % Eosinophils % % Basophils % % Neutrophils # (1.3-7.7) k/uL Lymphocytes # (1.0-4.8) k/uL Monocytes # (0-1.0) k/uL Eosinophils # (0-0.7) k/uL Basophils # (0-0.2) k/uL PT (9.0-12.0) sec INR (<1.2) APTT (22.0-30.0) sec Sodium (137-145) mmol/L Potassium (3.5-5.1) mmol/L Chloride (98-107) mmol/L Carbon Dioxide (22-30) mmol/L Anion Gap mmol/L BUN (7-17) mg/dL Creatinine (0.52-1.04) mg/dL Est GFR (CKD-EPI)AfAm (>60 ml/min/1.73 sqM) Est GFR (CKD-EPI)NonAf (>60 ml/min/1.73 sqM) Glucose (74-99) mg/dL Calcium (8.4-10.2) mg/dL Total Bilirubin (0.2-1.3) mg/dL AST (14-36) U/L ALT (4-34) U/L Alkaline Phosphatase (38-126) U/L Troponin I <0.012 (0.000-0.034) ng/mL Total Protein (6.3-8.2) g/dL Albumin (3.5-5.0) g/dL - EKG Data -: EKG Interpreted by Me EKG shows normal: sinus rhythm (EKG interpreted by me shows sinus rhythm with a ventricular rate of 75, AL interval 0.138, QRS 0.76, QTC 0.399) Disposition Clinical Impression: Shortness of breath Disposition: HOME SELF-CARE Condition: Good Instructions (If sedation given, give patient instructions): Shortness of Breath (ED) Additional Instructions: Continue taking your Advair and budesonide as prescribed. Use your albuterol as needed for any difficulty in breathing, wheezing or cough. Avoid environmental exposures when possible. Return to the emergency room with any new or concerning symptoms. Follow-up with your auto vinyl top installer as needed. Is patient prescribed a controlled substance at d/c from ED?: No Referrals: Jad Del Rosario DO [Primary Care Provider] - 1-2 days Time of Disposition: 20:00
[2022-08-23] MEDS ORDERED: ALBUTEROL HFA INHALER INHALATION STA (19:54)
[2022-08-23 21:06] VITALS: BP 118/80; PULSE 79; RESP 18
== END 2022-08-23 21:11 | disposition home or self-care (01) ==
LOC: EC 16:01
DX: R06.02 Shortness of breath (principal); Z88.8 Allergy status to other drugs, medicaments and biological substances
CPT/HCPCS: 36415; 71046; 80053; 84484; 85025; 85610; 85730; 93005; 94640; 99285

== ENCOUNTER → 2022-10-27 | Outpatient (CLI) | payer BC ==
--- NOTE | 2022-10-30 09:58 | MM ---
Reason for Exam: Hx of breast augmentation, asymptomatic. Last mammogram was performed 1 year(s) and 1 month(s) ago. Patient History: Menarche at age 13. First Full-Term at age 23. Postmenopausal. Patient has history of breast feeding. 2000, Bilateral Implants. Risk Values: Sarah 5 year model risk: 1.1%. NCI Lifetime model risk: 7.2%. Prior Study Comparison: 09/17/2017 Bilateral Screening Mammogram, [facility]. 04/08/2019 Bilateral Screening Mammogram, [facility]. 06/25/2020 Bilateral Screening Mammogram, [facility]. 09/29/2021 Bilateral MG 3D screening mammo w/cad, [facility]. Tissue Density: The breast tissue is heterogeneously dense. This may lower the sensitivity of mammography. Findings: Analyzed By CAD. Bilateral breast implants with capsular calcifications. There is no suspicious group of microcalcifications or new suspicious mass in either breast. Overall Assessment: Benign, BI-RAD 2 Management: Screening Mammogram of both breasts in [address] [facility] will attempt to contact patient to return for supplemental views and ultrasound if indicated. Patient should continue monthly self-breast exams. A clinical breast exam by your physician is recommended on an annual basis. This exam should not preclude additional follow-up of suspicious palpable abnormalities. Note on Sarah scores and lifetime risk: 1. A Sarah score greater than 3% is considered moderate risk. If this is the case, consider specialist referral to assess eligibility for a risk reducing agent. 2. If overall lifetime risk for the development of breast cancer is 20% or higher, the patient may qualify for future screening with alternating mammogram and breast MRI. Electronically signed and approved by: Jose Maria Ovalles DO
== END | disposition home or self-care (01) ==
LOC: RADMAMWWP 09:31
PROVIDERS: ATTEND Obstetrics & Gynecology
DX: Z12.31 Encounter for screening mammogram for malignant neoplasm of breast (principal); Z78.0 Asymptomatic menopausal state
CPT/HCPCS: 77063; 77067

== ENCOUNTER → 2022-12-04 | Outpatient (CLI) | payer BC ==
--- NOTE | 2022-12-04 15:00 | US ---
EXAMINATION TYPE: US kidneys/renal and bladder DATE OF EXAM: 12/04/2022 COMPARISON: NONE CLINICAL INDICATION: Female, 57 years old with history of R31.1 BENIGN ESSENTIAL MICROSCOPIC HEMATURI A; Microscopic hematuria EXAM MEASUREMENTS: Right Kidney: 9.3 x 4.7 x 4.1 cm Left Kidney: 10.1 x 5.2 x 3.9 cm Right Kidney: no evidence of hydronephrosis Left Kidney: no evidence of hydronephrosis Bladder: not fully distended Bilateral Jets seen: no There is no evidence for hydronephrosis at this point in time. No nephrolithiasis is seen. No jak s are identified. The urinary bladder is anechoic. Bilateral ureteral jets are seen. IMPRESSION: No evidence for obstructive uropathy or renal calculus.
== END | disposition home or self-care (01) ==
LOC: RADUSWWP 14:22
PROVIDERS: ATTEND Urology
DX: R31.1 Benign essential microscopic hematuria (principal)
CPT/HCPCS: 76770

== ENCOUNTER → 2023-07-20 | Outpatient (CLI) | payer BC | END | disposition home or self-care (01) | LOC: LABWHC1 11:05 | PROVIDERS: ATTEND Internal Medicine Critical Care Medicine | DX: J45.909 Unspecified asthma, uncomplicated (principal) | CPT/HCPCS: 36415; 82785; 85008 ==